=== PATIENT | male | born 2000 | race Caucasian/White ===

== ENCOUNTER 2018-11-29 16:56 | Emergency (ER) | payer MEDICAID ==
[~2018-11-29] VITALS: Ht 177.8 cm; Wt 70.8 kg
[2018-11-29 17:05] VITALS: BP 108/65
--- NOTE | 2018-11-29 17:12 | NUR ---
PATIENT AMBULATED TO BED 1 AT THIS TIME.
--- NOTE | 2018-11-29 17:23 | NUR ---
C/O RIGHT WRIST PAIN X 3 DAYS. DENIES TRAUMA/INJURY RECENTLY. MED HX: FRACTURE RIGHT ELBOW & SURGERY IN 2016 . DENIES N/V/D; SKIN IS PINK/WARM/DRY; AAOX4 WITH EVEN AND STEADY GAIT; LUNGS CLEAR BL; HR EVEN AND REGULAR; PT DENIES ANY FEVER, CP, SOB, OR COUGH AT THIS TIME; PATIENT STATES PAIN OF 7/10 AT THIS TIME; VSS; PATIENT POSITIONED FOR COMFORT; HOB ELEVATED; BEDRAILS UP X2; BED DOWN. ER MD MADE AWARE OF PT STATUS.
--- NOTE | 2018-11-29 17:51 | NUR ---
AAPLIED VELCRO THUMB SPICA TO RIGHT WRIST WITHOUT ANY ISSUES
[2018-11-29 17:55] VITALS: BP 108/65
== END 2018-11-29 17:55 | disposition home or self-care (01) ==
LOC: MED 16:56
DX: M65.4 Radial styloid tenosynovitis [de Quervain] (principal); R53.1 Weakness
CPT/HCPCS: 99282; 99283

== ENCOUNTER 2022-09-20 18:26 | Emergency (ER) | payer MEDICAID ==
[~2022-09-20] VITALS: Ht 177.8 cm; Wt 78.9 kg
[2022-09-20 18:39] VITALS: BP 127/67; PULSE 76; RESP 18; TEMP 98.2; O2SAT 98
[2022-09-20] MEDS ORDERED: KETOROLAC 30 MG/ML VIAL IM ONE (19:25)
[2022-09-20] MEDS ORDERED: IBUP-2213 PO (19:26)
[2022-09-20] MEDS ORDERED: CAPS42.514 TP (19:26)
[2022-09-20 20:25] VITALS: BP 127/67; PULSE 76; RESP 18; TEMP 98.2; O2SAT 98
== END 2022-09-20 20:25 | disposition home or self-care (01) ==
LOC: MED 18:26
DX: S39.012A Strain of muscle, fascia and tendon of lower back, initial encounter (principal); M25.572 Pain in left ankle and joints of left foot; M25.561 Pain in right knee; M25.562 Pain in left knee; Z79.899 Other long term (current) drug therapy; Z79.1 Long term (current) use of non-steroidal anti-inflammatories (NSAID); X58.XXXA Exposure to other specified factors, initial encounter; Y92.89 Other specified places as the place of occurrence of the external cause; Y93.89 Activity, other specified; Y99.8 Other external cause status
CPT/HCPCS: 81002; 96372; 99283; J1885